=== PATIENT | male | born 1985 | race Caucasian/White ===

== ENCOUNTER 2018-04-10 14:00 | Emergency (ER) | payer BC ==
[2018-04-10 15:38] VITALS: BP 129/65
[2018-04-10] MEDS ORDERED: Tetan/Diph/Pertus SYR(Tdap)* 0.5 ML SYR(BOOSTRIX) use SYR IM ONE (15:54)
[2018-04-10] MEDS ORDERED: Lidocaine 1%* 5 ML VIAL INJ ONE (15:55)
--- NOTE | 2018-04-10 15:59 | UC ---
Skin Complaint HPI - HPI Summary HPI Summary: PATIENT SUSTAINED A LACERATION TO HIS LEFT THIRD FINGER WHILE USING A REGULATORY AFFAIRS INTERN AT HOME TODAY. LAST KNOWN TETANUS OVER 5 YEARS AGO. - History of Current Complaint Chief Complaint: UCLaceration Time Seen by Provider: 04/10/18 15:49 Stated Complaint: LEFT MIDDLE FINGER LACERATION Hx Obtained From: Patient Onset/Duration: Sudden Onset, Lasting Hours, Still Present Timing: Constant Onset Severity: Moderate Current Severity: Moderate Pain Intensity: 3 Pain Scale Used: 0-10 Numeric Location: Discrete - LEFT 3RD FINGER Character: Pain Aggravating Factor(s): Touch Alleviating Factor(s): Nothing - Allergy/Home Medications Allergies/Adverse Reactions: Allergies Allergy/AdvReac Type Severity Reaction Status Date / Time erythromycin base AdvReac GI Upset Verified 04/10/18 15:35 Home Medications: Home Medications LevoCETirizine TAB (NF) [Xyzal TAB (NF)] 5 mg PO DAILY 04/10/18 [History Confirmed 04/10/18] Review of Systems Constitutional: Negative Skin: Other - LACERATION Respiratory: Negative Cardiovascular: Negative Gastrointestinal: Negative Musculoskeletal: Negative All Other Systems Reviewed And Are Negative: Yes PMH/Surg Hx/FS Hx/Imm Hx Previously Healthy: Yes - Surgical History Surgical History: Yes Surgery Procedure, Year, and Place: tubes in ears at age 4- [facility]. left knee meniscus repair - Family History Known Family History: Negative: Hypertension - Social History Alcohol Use: Rare Alcohol Amount: BEER WITH DINNER 1-2 TIMES WEEKLY Substance Use Type: None Smoking Status (MU): Never Smoked Tobacco Physical Exam Triage Information Reviewed: Yes Appearance: Well-Appearing, No Pain Distress, Well-Nourished Vital Signs: Initial Vital Signs Temp 98 F 04/10/18 15:33 Pulse 85 04/10/18 15:33 Resp 16 04/10/18 15:33 BP 129/65 04/10/18 15:33 Pulse Ox 100 04/10/18 15:33 Vital Signs Reviewed: Yes Eyes: Positive: Conjunctiva Clear ENT: Positive: Hearing grossly normal Neck: Positive: Supple Respiratory: Positive: No respiratory distress, No accessory muscle use Cardiovascular: Positive: Pulses Normal Abdomen Description: Positive: Soft Musculoskeletal: Positive: ROM Intact, No Edema Neurological: Positive: Alert Psychological: Positive: Age Appropriate Behavior Skin: Positive: Other - 3CM LINEAR LACERATION LEFT LATERAL 3RD FINGER DISTAL PHALANX Laceration Repair - Laceration Repair 1 Description: Linear Laceration Size After Repair: Length (cm) - 3CM, Width (mm) - 0MM, Depth (mm) - 3MM Modified For Repair: No Type Injection: Digital Anesthesia Used: 1.0% Lido Irrigation With Pressure Irrigation Device: Yes Closure Material: Sutures - 8 SIMPLE INTERRUPTED Closure Method: Single Layer Suture Of: Skin Suture Type: Prolene - 5-0 Course/Dx - Diagnoses Provider Diagnoses: 1. LACERATION REPAIR - LEFT 3RD FINGER. 2. TDAP BOOSTER Discharge - Sign-Out/Discharge Documenting (check all that apply): Patient Departure All imaging exams completed and their final reports reviewed: No Studies - Discharge Plan Condition: Stable Disposition: HOME Patient Education Materials: Laceration (ED) Referrals: No Primary Care Phys,NOPCP [Primary Care Provider] - Additional Instructions: KEEP DRESSINGS IN PLACE AND DRY FOR THE FIRST 24 HRS. THEN YOU MAY REMOVE THE DRESSING AND GENTLY CLEANSE WITH SOAP AND WATER. PAT DRY AND RE-BANDAGE. APPLY THIN LAYER ANTIBIOTIC OINTMENT UNDER BANDAGE FOR FIRST 3-4 DAYS ONLY. CHANGE BANDAGE DAILY AND NEEDED IF IT BECOMES SOILED OR WET. SEEK FOLLOW-UP IF YOU DEVELOP SPREADING REDNESS OF THE SKIN, PURULENT DRAINAGE, FEVER, INCREASED PAIN OR ANY OTHER CONCERNING SYMPTOMS. RETURN HERE OR THE [facility] TO HAVE YOUR EIGHT SUTURES REMOVED IN 10 DAYS TETANUS IMMUNIZATION GIVEN (TDAP): You have been given an immunization against tetanus. Please record this in your records. In general, a booster is needed only once every 10 years. The tetanus shot protects against tetanus or "lockjaw," which is a complication of certain wound infections (the tetanus shot cannot protect against the actual infection). The immunization site may become warm and red due to local reaction. If this occurs, apply warm compresses and take aspirin or ibuprofen to reduce inflammation and discomfort. Return for evaluation if the reaction becomes severe. CALL THE NUMBER BELOW FOR ASSISTANCE IN ESTABLISHING WITH A PCP An additional resource available to assist in finding the appropriate physician for your health care needs is [facility] ([facility]). You may contact them by calling [phone]. - Billing Disposition and Condition Condition: STABLE Disposition: Home
== END 2018-04-10 17:05 | disposition home or self-care (01) ==
LOC: UCCORT 14:00
DX: Z88.1 Allergy status to other antibiotic agents (principal); S61.213A Laceration without foreign body of left middle finger without damage to nail, initial encounter; W26.0XXA Contact with knife, initial encounter; Y92.9 Unspecified place or not applicable
CPT/HCPCS: 12002; 90471; 90715; 99201; G0463